=== PATIENT | female | born 1970 | race Caucasian/White ===

== ENCOUNTER 2019-02-23 08:12 | Observation (INO) ==
--- NOTE | 2019-02-23 09:13 | Emergency Department Note ---
Disposition Clinical Impression: Elevated troponin Disposition: Admitted As Inpatient Condition: Fair Referrals: Antonino Yoon MD [Primary Care Provider] - Forms: ED Satisfaction Letter Time of Disposition: 10:13 General Adult HPI - General Chief complaint: ED Weakness Stated complaint: Weakness, Abdominal pain Time Seen by Provider: 02/23/19 08:19 Source: patient Limitations: no limitations Nursing Notes Reviewed: Yes Vital Signs Reviewed: Yes - History of Present Illness HPI Narrative: 48 year old female with a history of Crohn's disease resents with abdominal bloating and weakness for [address] Morales last week. She was told that she can decrease the dose of Pentasa. She decreased Pentasa from 6 times a day to 5 times a day 5 days ago. She started symptoms ever since. Patient increase the dose back to 6 times a day since Thursday. Patient reported nausea and burping. No vomiting. No chills and fever. No constipation or pierce rrhea. Onset (ago): day(s) (5) Location: abdomen Pain Scale: 5 - Related Data Home Medications Medication Instructions Recorded Confirmed Mesalamine [Pentasa] 1,500 mg PO BID 02/23/19 02/23/19 Allergies Allergy/AdvReac Type Severity Reaction Status Date / Time dicyclomine [From Bentyl] AdvReac Diarrhea Verified 02/23/19 10:13 Constitutional: Denies: fever, chills Eyes: Denies: eye pain ENT ED: Denies: ear pain Cardiovascular: Denies: chest pain Respiratory: Denies: cough Gastrointestinal: Reports: abdominal pain, nausea. Denies: vomiting, diarrhea, constipation Genitourinary: Denies: urgency Musculoskeletal: Denies: back pain Integumentary: Denies: rash Neurological: Denies: headache Psychiatric: Denies: anxiety Endocrine: Denies: fatigue Hematological/Lymphatic: Denies: easy bleeding Allergic/Immunologic: Denies: facial swelling Past Medical History - Past Medical History Medical history: Reports: other Surgical history: Reports: hysterectomy Psychiatric history: Reports: no psych history - Social History Smoking Status: Never smoker Smokeless Tobacco Status: No Alcohol use: Reports: none Drug use: Reports: none Physical Exam - General Limitations: no limitations General appearance: alert, in no apparent distress - Head Head exam: atraumatic - Eye Eye exam: Present: normal appearance - ENT ENT exam: normal exam - Neck Neck exam: Present: normal inspection - Chest Chest inspection: Present: normal inspection - Respiratory Respiratory exam: Present: normal lung sounds bilaterally - Cardiovascular Cardiovascular exam: Present: regular rate - Abdominal Exam Abdominal exam: Present: soft, tenderness Abdominal tenderness: Present: epigastrium - Extremities Exam Extremities exam: Present: normal inspection, full ROM. Absent: tenderness - Back Exam Back exam: Present: normal inspection, full ROM. Absent: tenderness - Neurological Exam Neurological exam: Present: alert, oriented X3 - Psychiatric Psychiatric exam: Present: normal affect - Skin Skin exam: Present: warm, intact Course Vital Signs Temperature 97.5 F L 02/23/19 08:15 Pulse Rate 84 02/23/19 08:15 Respiratory Rate 18 02/23/19 08:15 Blood Pressure 142/93 02/23/19 08:15 O2 Sat by Pulse Oximetry 98 02/23/19 08:15 Temperature 97.5 F L 02/23/19 08:15 Pulse Rate 84 02/23/19 08:15 Respiratory Rate 18 02/23/19 08:15 Blood Pressure 142/93 02/23/19 08:15 O2 Sat by Pulse Oximetry 98 02/23/19 08:15 Oxygen Delivery Oxygen Delivery Room Air Medical Decision Making - [facility] Narrative Medical decision making narrative: 48 year old female with history of crohn's disease presents with abdomen bloating and generalized weakness for 5 days. Pt's symptoms started when she decreased Pensata from 6 times to 5 times a day. Pt returned to original dosage two days ago. But her symptoms wasn't resolved. Pt denied chest pain or shortness of breath. Pt has nausea. No vomiting. Pt's physical: no tachycardia, abdomen soft, mild epigastric pressure. EKG: no elevation of ST. Troponin elevated 0.07. Pt will be admit to hospital. Dr. Jacinto has seen the patient and agrees the above plan. - Lab Data Lab results reviewed: Yes I reviewed the patient's lab results. Result diagrams: 02/23/19 09:08 02/23/19 09:08 Lab Results 02/23/19 02/23/19 Range/Units 09:08 09:08 WBC 7.3 (4.3-11.1) K/mcL RBC 4.85 (3.82-4.97) M/mcL Hgb 14.7 (11.5-15.4) g/dL Hct 43.3 (35.3-44.9) % MCV 89.3 (83.0-100.0) fL MCH 30.3 (28.0-33.3) pg MCHC 33.9 (31.6-35.5) g/dL RDW 12.2 (11.5-14.5) % Plt Count 267 (140-400) K/mcL MPV 10.1 (9.4-12.4) fL Immature Gran % 0.3 (0-4) % Seg Neutrophils % 68.9 % Lymphocytes % 20.7 % Monocytes % 7.7 % Eosinophils % 1.9 % Basophils % 0.5 % Neutrophils # 5.0 (1.6-8.9) K/mcL Lymphocytes # 1.5 (0.6-4.6) K/mcL Monocytes # 0.6 (0.0-1.3) K/mcL Eosinophils # 0.1 (0.0-0.6) K/mcL Basophils # 0.0 (0.0-0.2) K/mcL Sodium 137 (136-145) mEq/L Potassium 4.9 (3.5-5.1) mEq/L Chloride 103 (98-107) mEq/L Carbon Dioxide 26 (23-29) mEq/L BUN 19 (6-20) mg/dL Creatinine 0.71 (0.60-1.20) mg/dL Est GFR ( Amer) > 60 (> 60) Est GFR (Non-Af Amer) > 60 (> 60) BUN/Creatinine Ratio 27 H (6-26) Glucose 79 (70-105) mg/dL Calculated Osmolality 285 (280-300) Calcium 10.0 (8.6-10.3) mg/dL Troponin I 0.07 H* (< 0.04) ng/mL Lipase 39 (11-82) Units/L Attestation Statement - Attestation Attestation: I examined this patient and my medical decision-making was reviewed with the advanced practice provider I agree with the documented findings, disposition and treatment plan as described except to the extent set forth below. Patient has benign abdominal examination in the emergency room, there is no severe abdominal tenderness on examination, no mass guarding or rebound, the patient does not have a cough, she did have a recent viral illness last week she states. She denies any severe shortness of breath or chest pain here in the emergency room. The patient denies any fever today or yesterday. The patient has had no urinary complaints. The patient's workup is unremarkable except for noted troponin. The patient did have an EKG that showed sinus rhythm, no evidence of ST elevation or depression, OH and QT intervals were within normal limits. I did interpret this myself. The patient this point in time is going to be admitted for elevated troponin, patient was given aspirin here in the emergency room. Patient will be admitted in stable condition to the floor. No other critical interventions performed, no critical care.
[2019-02-23 09:34] LABS: Basophils % 0.5 %; Eosinophils # 0.1 K/mcL (0.0-0.6); Eosinophils % 1.9 %; Hematocrit 43.3 % (35.3-44.9); Hemoglobin 14.7 g/dL (11.5-15.4); Immature Granulocytes % 0.3 % (0-4); Lymphocytes # 1.5 K/mcL (0.6-4.6); Lymphocytes % 20.7 %; Mean Corpuscular HGB Conc 33.9 g/dL (31.6-35.5); Mean Corpuscular Hemoglobin 30.3 pg (28.0-33.3); Mean Corpuscular Volume 89.3 fL (83.0-100.0); Mean Platelet Volume 10.1 fL (9.4-12.4); Monocytes # 0.6 K/mcL (0.0-1.3); Monocytes % 7.7 %; Platelet Count 267 K/mcL (140-400); Red Blood Count 4.85 M/mcL (3.82-4.97); Red Cell Distribution Width 12.2 % (11.5-14.5); Segmented Neutrophils % 68.9 %; White Blood Count 7.3 K/mcL (4.3-11.1)
[2019-02-23 09:39] LABS: BUN/Creatinine Ratio 27 (6-26); Blood Urea Nitrogen 19 mg/dL (6-20); Carbon Dioxide 26 mEq/L (23-29); Chloride 103 mEq/L (98-107); Glucose 79 mg/dL (70-105); Lipase 39 Units/L (11-82); Osmolality,Calculated 285 (280-300); Potassium 4.9 mEq/L (3.5-5.1); Sodium 137 mEq/L (136-145); eGFR For African Americans > 60 (> 60); eGFR For Non-African Americans > 60 (> 60)
[2019-02-23 09:42] LABS: Troponin I 0.07 ng/mL (< 0.04)
[2019-02-23] MEDS ORDERED: Aspirin 325 MG TABLET PO ONE (10:11)
[2019-02-23] MEDS ORDERED: Pantoprazole 40 MG VIAL IVP ONE (10:11)
[2019-02-23] MEDS ORDERED: Ondansetron 4 MG/2 ML VIAL IVP ONE (10:11)
[2019-02-23] MEDS ORDERED: Naloxone 0.4 MG/ML INJ IVP PRN (10:14)
[2019-02-23] MEDS ORDERED: Ondansetron ODT 4 MG TAB.RAPDIS SL PRN (10:14)
[2019-02-23] MEDS ORDERED: *HR* Promethazine 25 MG/ML VIAL IVP PRN (10:14)
[2019-02-23 10:18] LABS: Bilirubin,Urine Negative (Negative); Blood,Urine Negative (Negative); Clarity,Urine Clear (Clear); Color,Urine Yellow (Yellow); Glucose,Urine (UA) Normal (Normal); Ketones,Urine Negative (Negative); Leukocyte Esterase,Urine Negative (Negative); Nitrite,Urine Negative (Negative); PH,Urine 6.5 pH Units (5.0-8.0); Protein,Urine Negative (Neg-Trace); Specific Gravity,Urine 1.019 (1.010-1.025); Urobilinogen,Urine Normal (Normal)
[2019-02-23] MEDS ORDERED: 0.9 % Sodium Chloride 1,000 ML IVC ONE (10:36)
[2019-02-23] MEDS ORDERED: methylPREDNISolone 125 MG/2 ML VIAL IVP ONE (10:38)
--- NOTE | 2019-02-23 11:30 | Internal Med History&Physical ---
Date of Encounter: 02/23/19 Time of Encounter: 11:27 Internal Medicine - H&P: HPI Chief complaint: Abdominal bloating and extreme fatigue Admitted From: Home Plans for Post Hospital Care: Home History of present illness: Ms. Schneider is a 48 year old female with history of Crohn's disease controlled up until recently on mesalamine presents with abdominal bloating and extreme fatigue. Patient normally takes 6 pills of mesalamine and is considered stable on this for the last [address] Montez of gastroenterology. Had a recent appointment with Dr. Wilson and discuss going down on her dose because she is been so stable and patient was interested in taking less pills. Went up to 5 pills per day. February 18 patient began to experience an episode of diarrhea. Diarrhea resolved but on February 19 patient began to experience severe abdominal cramping and extreme fatigue. Says she does not have the energy to do anything. Went to her PCP February 21 and labs at that time normal. Went back up to her 6 pills per day at that time. Despite this, symptoms have not resolved. Patient denies diarrhea and constipation at this time. Denies blood in her stool or melena. Had some nausea but no episodes of vomiting. Has been able to eat minimally. Past Med Surg Social Fam HX - Past Medical History Medical history: other Additional medical history: anemia,bronchitis Psychiatric history: no psych history - Past Surgical History Surgical History: hysterectomy - Social History Smoking Status: Never smoker Smokeless Tobacco Status: No Alcohol use: none Drug use: none Internal Medicine - H&P: Meds Mesalamine [Pentasa] 1,500 mg PO BID 02/23/19 [History] Allergy/AdvReac Type Severity Reaction Status Date / Time dicyclomine [From Bentyl] AdvReac Diarrhea Verified 02/23/19 10:13 All Systems PM: A 10-system review of systems was performed and is negative for pertinent findings except as documented above in the HPI. Review of systems: General: Fevers / Chills / Weight loss / Night sweats / Fatigue Eyes: Blurry Vision / Change in Vision HENT: Ear Pain / Ear Drainage / Rhinorrhea / Throat Pain / Lymphadenopathy Cardiovascular: Chest Pain / Palpatations / Orthopnea / ROBERTS / Weight gain Lungs: Dyspnea / Wheezing / Cough / Sputum production / Pleurisy Abdomen: Abdomen cramping / Abdominal distention / Nausea / Vomiting / Diarrhea / Const : Dysuria / Urinary Frequency / Urinary Urgency / Hematuria Extremities: LE edema / Ext pain / Ext erythema Skin: Rashes / Abrasions / Contusions Psych: Hallucinations / Anxiety / Depression Neuro: Weakness / Numbness / Tingling / Facial Droop / Dysphagia - Constitutional Vitals: Temp Pulse Resp BP Pulse Ox 98.4 F 72 16 138/80 99 02/23/19 11:26 02/23/19 11:26 02/23/19 11:26 02/23/19 11:26 02/23/19 11:26 Exam: General: Ill-appearing and in no acute distress HEENT: No erythema of posterior pharynx. No exudates. Lymphatics: No mandibular or cervical lymphadenopathy Cardiovascular: RRR. No murmurs. No chest wall tenderness. Lungs: Clear to auscelltation bilaterally. Regular chest rise. Abdomen: Largely non-tender. No rebound or gaurding. Nl bowel sounds. Extremities: No edema. 2+ pulses radial and pedal pulses Skin: No rahses, abrasions, or contusions. Nl cap refill. Psych: Nl attention. A&Ox3 Neuro: corporate pilot II-XII intact. 5/5 strength. Sensation to light touch and pinprick intact. Internal Med - H&P Results - Labs CBC & Chem 7: 02/23/19 09:08 02/23/19 09:08 Labs: Short CBC 02/23/19 Range/Units 09:08 WBC 7.3 (4.3-11.1) K/mcL Hgb 14.7 (11.5-15.4) g/dL Hct 43.3 (35.3-44.9) % Plt Count 267 (140-400) K/mcL Neutrophils # 5.0 (1.6-8.9) K/mcL BMP 02/23/19 09:08 Sodium 137 Potassium 4.9 Chloride 103 Carbon Dioxide 26 BUN 19 Creatinine 0.71 Glucose 79 Calcium 10.0 Cardiac Enzymes 02/23/19 Range/Units 09:08 Troponin I 0.07 H* (< 0.04) ng/mL Urine 02/23/19 Range/Units 09:55 Urine Color Yellow (Yellow) Urine Clarity Clear (Clear) Urine pH 6.5 (5.0-8.0) pH Units Ur Specific [place] 1.019 (1.010-1.025) Urine Protein Negative (Neg-Trace) mg/dL Urine Glucose (UA) Normal (Normal) mg/dL - Impressions ITS Impressions Chest X-Ray 02/23/19 10:13 IMPRESSION: Stable chest without acute cardiopulmonary process. D/ / Dennis Kruse MD / Dennis Kruse MD Interpreting Provider: Dennis Kruse MD - Assessment and Plan (1) Crohn's colitis Current Visit: Yes Status: Acute Assessment and plan: Patient with history of Crohn's disease controlled up until recently on mesalamine presents with abdominal bloating and extreme fatigue in the setting of recently going down on her mesalamine dose, stable vitals, benign physical exam, and no leukocytosis. -Likely straightforward case of Crohn's flare setting of recently going down on her mesalamine dose -Alternative etiologies considered as ACS given troponin was elevated and will need to trend PLAN: - Status post IV methylprednisolone in the ED. Will schedule prednisone 40mg qd thereafter - Continue home mesalamine (6 pills/d) - Discused case with GI and they will see patient given she closely folllows with GI - Will hold off on CT abd/pelvis at this time unless GI feels strongly about getting it Qualifiers: Digestive disease complication type: without complication Qualified Code(s): K50.10 - Crohn's disease of large intestine without complications (2) Generalized weakness Current Visit: Yes Status: Acute Assessment and plan: Likely secondary to Crohn's flare described above (3) Elevated troponin Current Visit: Yes Status: Acute Assessment and plan: No personal history of heart disease with strong family history of heart disease. Otherwise seems to be at low risk. No exertional dyspnea. Suspect this is type II demand but will trend troponin. - Trend troponin - Summary of Assessment and Plan Summary of Assessment and Plan: LMWH
--- NOTE | 2019-02-23 11:49 | Gastroenterology Consult Note ---
Date of Encounter: 02/23/19 Time of Encounter: 11:39 - Assessment and plan (1) Crohn's colitis Current Visit: Yes Status: Acute Assessment and plan: History of Crohn's colitis follows Dr. Morales outpatient Presented to the ED on 02/23/19 complaining of diffuse at all pain with distention Her last colonoscopy was on 03/07/15 which showed diffusely normal Had an EGD on 03/07/15 which showed normal stomach mucosa but due to other workup and significant diaahea was diagonosed with Crohns Crohns has been controlled with mesalamine outpatient At presentation her hemoglobin was within normal limits at 14.7 and white blood cell count 7.3 Received 125 mg of Solu-Medrol in the ED Less likely GI etiology, no diarrhea, no nausea, no reproducible abdominal tenderness, no dysphagia or loss of appetite Given the severe fatigue since 02/19/19 and elevated troponin concerning for cardiac etiology Will order B12 for energy support Recommend cardiac workup Qualifiers: Digestive disease complication type: without complication Qualified Code(s): K50.10 - Crohn's disease of large intestine without complications - Time Spent With Patient Total time spent is greater than 50% in coordination of care (as documented) at patient's floor/unit and/or counseling patient: GI History of Present Illness - Data of Consult Requesting Physician: Lance Christianson - Consult Narrative History of present illness: Ms. Schneider is a 48 year old female with past medical history of bronchitis, Crohn's disease which was controlled on mesalamine outpatient is admitted to the ED complaining of abdominal bloating and extreme fatigue. She has been stable on mesalamine for the past 4 years and follows outpatient with Dr. peres. She was previously on 6 pills of mesalamine recently had outpatient appointment and was recommended to decrease to 5 pills per day and reported on February 18 started to experience an episode of diarrhea. On February 19 continued to have severe diarrhea with abdominal cramping and extreme fatigue. Diarrhea resolved and had regular bowel movement today. On February 21 her PCP ordered labs which included iron panel, B12 as well as thyroid function which were all within normal limits. She does report that 2 days prior to her symptoms starting she visited a water park and after returning from the park had symptoms of sore throat, cough as well as subjective fever. Continues to complain of cough and significant fatigue unable to move around much and reports she is staying in bed which is very unlike her. At this time she is denying any diarrhea constipation but complaining of severe abdominal pain. Reports no difficulty with oral intake. Denied hematochezia, melena, emesis. Past Med Surg Social Fam HX - Past Medical History Medical history: other Additional medical history: anemia,bronchitis Psychiatric history: no psych history - Past Surgical History Surgical History: hysterectomy - Social History Smoking Status: Never smoker Smokeless Tobacco Status: No Alcohol use: none Drug use: none - Gastrointestinal Gastrointestinal: Present: abdominal pain (periumbilical). Absent: diarrhea, melena, vomiting - Constitutional Constitutional: fatigue, fever(s) (subjective on 02/21/19) - EENT Nose, mouth and throat: Absent: dysphagia, hoarseness, sore throat - Cardiovascular Cardiovascular ROS: Absent: chest pain, irregular heart rhythm, palpitations - Respiratory Respiratory IM: Absent: cough, dyspnea - Neurological ROS Neurological GI: Absent: confusion, headache(s), weakness - Hematologic/Lymphatic Hematologic/Lymphatic pediatric: Absent: easy bleeding - Musculoskeletal Musculoskeletal ROS GI: Absent: back pain, joint swelling - Integumentary Integumentary GI: Absent: pruritis, rash - Constitutional Vitals: Temp Pulse Resp BP Pulse Ox 98.4 F 72 16 138/80 99 02/23/19 11:26 02/23/19 11:26 02/23/19 11:26 02/23/19 11:26 02/23/19 11:26 - Head Head exam: Present: atraumatic, normal inspection - Eye Eye exam: Present: EOMI, sclera anicteric. Absent: conjunctival injection - ENT ENT exam: Present: mucous membranes moist, normal oropharynx - Neck Neck exam general surgery: Present: full ROM, trachea midline - Respiratory Respiratory exam: Present: CTAB. Absent: rhonchi, wheezes - Cardiovascular Cardiovascular exam: Present: RRR, +S1, +S2 - GI/Abdominal GI/Abdominal exam: Present: normal bowel sounds, soft. Absent: firm - Neurological Exam Neurological exam: Present: alert, oriented X3 - Skin Skin exam: Present: dry, intact Results - Labs CBC & Chem 7: 02/23/19 09:08 02/23/19 09:08 Labs: Last Result 02/23/19 09:08 Calcium 10.0 Troponin I 0.07 H* Entire Visit 02/23/19 02/23/19 09:08 09:08 Hgb 14.7 Hct 43.3 Lipase 39 - Impressions Impressions Chest X-Ray 02/23/19 10:13 IMPRESSION: Stable chest without acute cardiopulmonary process. D/ / Dennis Kruse MD / Dennis Kruse MD Interpreting Provider: Dennis Kruse MD Consult Discharge Plan - Plan Referrals: Antonino Yoon MD [Primary Care Provider] -
[2019-02-23] MEDS ORDERED: Isovue-370 500 ML BOTTLE IVP ONE (12:10)
[2019-02-23] MEDS ORDERED: Isovue-370 500 ML BOTTLE PO ONE (15:13)
--- NOTE | 2019-02-23 15:18 | Electrocardiograph Report ---
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
[2019-02-23] MEDS: Cyanocobalamin (B-12) 1,000 MCG TABLET PO SCH (17:16)
[2019-02-23] MEDS ORDERED: Mesalamine 250 MG CAPSULE.ER PO SCH (18:00)
[2019-02-23] MEDS: MESALAMINE PO SCH (18:41)
[2019-02-24] MEDS ORDERED: Ketorolac 15 MG/ML VIAL IVP ONE (03:11)
[2019-02-24] MEDS ORDERED: 0.9 % Sodium Chloride 1,000 ML IVC SCH (04:45)
[2019-02-24] MEDS: MESALAMINE PO SCH ×2 (04:51→11:52)
[2019-02-24 04:59] LABS: Basophils % 0.2 %; Eosinophils % 0.1 %; Hemoglobin 13.5 g/dL (11.5-15.4); Immature Granulocytes % 0.3 % (0-4); Lymphocytes % 11.4 %; Mean Corpuscular HGB Conc 33.8 g/dL (31.6-35.5); Mean Corpuscular Hemoglobin 29.9 pg (28.0-33.3); Mean Corpuscular Volume 88.5 fL (83.0-100.0); Mean Platelet Volume 10.1 fL (9.4-12.4); Monocytes # 0.9 K/mcL (0.0-1.3); Monocytes % 5.8 %; Neutrophils # 13.3 K/mcL (1.6-8.9); Platelet Count 269 K/mcL (140-400); Red Blood Count 4.52 M/mcL (3.82-4.97); Red Cell Distribution Width 12.2 % (11.5-14.5); Segmented Neutrophils % 82.2 %
[2019-02-24 05:02] LABS: Lymphocytes # 1.9 K/mcL (0.6-4.6); White Blood Count 16.2 K/mcL (4.3-11.1)
[2019-02-24 05:20] LABS: BUN/Creatinine Ratio 24 (6-26); Blood Urea Nitrogen 15 mg/dL (6-20); Calcium 9.1 mg/dL (8.6-10.3); Carbon Dioxide 19 mEq/L (23-29); Chloride 108 mEq/L (98-107); Glucose 95 mg/dL (70-105); Osmolality,Calculated 289 (280-300); Potassium 3.9 mEq/L (3.5-5.1); Sodium 139 mEq/L (136-145); eGFR For African Americans > 60 (> 60); eGFR For Non-African Americans > 60 (> 60)
[2019-02-24 05:50] LABS: Adenovirus Not Detected (Not Detect); Coronavirus 229E Not Detected (Not Detect); Coronavirus HKU1 Not Detected (Not Detect); Coronavirus NL63 Not Detected (Not Detect); Coronavirus OC43 Not Detected (Not Detect); Human Metapneumovirus Not Detected (Not Detect); Human Rhinovirus/Enterovirus DETECTED (Not Detect); Influenza A Subtype 2009 H1 Not Detected (Not Detect); Influenza A Untypeable Not Detected (Not Detect); Influenza B Not Detected (Not Detect)
[2019-02-24 05:51] LABS: Bordetella Pertussis Not Detected (Not Detect); Chlamydophila pneumoniae Not Detected (Not Detect); Mycoplasma pneumoniae Not Detected (Not Detect); Parainfluenza Virus 1 Not Detected (Not Detect); Parainfluenza Virus 2 Not Detected (Not Detect); Parainfluenza Virus 3 Not Detected (Not Detect); Parainfluenza Virus 4 Not Detected (Not Detect); Respiratory Syncytial Virus Not Detected (Not Detect)
[2019-02-24] MEDS ORDERED: *HR* Enoxaparin 40 MG/0.4 ML SYRINGE SQ SCH (06:00)
[2019-02-24] MEDS ORDERED: Regadenoson 0.4 MG/5 ML SYRINGE IVP ONE (06:07)
[2019-02-24 11:28] VITALS: BP 131/73
[2019-02-24] MEDS: Cyanocobalamin (B-12) 1,000 MCG TABLET PO SCH (11:51)
--- NOTE | 2019-02-24 13:32 | Cardiology Consult Note ---
<Bandar Suarez R - Last Filed: 02/24/19 13:28> Date of Encounter: 02/24/19 Time of Encounter: 13:28 Assessment and Plan (1) Elevated troponin Current Visit: Yes Status: Acute Troponin 0.07, 0.07, 0.08, 0.07, 0.06--flat and adynamic in setting of entero/rhinovirus. Likely demand ischemia, nondiagnostic for ACS. Cardiac rehab not warranted. She denies chest pain or dyspnea, is very active at home. No personal CAD hx. No ischemic findings on ECG. TTE EF 60-65% with normal wall motion. Nuclear stress test negative for ischemia or infarct per preliminary results. Final report pending. Pt states abdominal pain has completely resolved and fatigue is improving. Will discuss and review with Dr. Sullivan. Anticipate sign off once seen and e valuated by her. Discussion w patient/family: The assessment and plan as outlined above was discussed with the patient and/or family members who expressed understanding and agreement. All questions were answered. Thank you for involving us in the care of your patient. Please call with any questions. I will discuss all the above with Dr. Sullivan and make changes as necessary. History of Present Illness Consult date: 02/24/19 Consult reason: elevated troponin Chief complaint: abdominal pain, fatigue History of present illness: Ms. Schneider is a 48 year old female with history of Crohn's disease controlled up until recently on mesalamine presents with abdominal bloating and extreme fatigue. Patient normally takes 6 pills of mesalamine and is considered stable on this for the last 4 years. Follows with GI. Presented to ED for symptoms. Troponin 0.07, 0.07, 0.08, 0.07, 0.06. Cardiology consulted for further recs. She denies chest pain or dyspnea, is very active at home. No personal CAD hx. Viral panel positive for entero/rhinovirus. TTE EF 60-65% with normal wall motion. Nuclear stress test negative for ischemia or infarct per preliminary results. Final report pending. Pt states abdominal pain has completely resolved and fatigue is improving. Past Med Surg Social Fam HX - Past Medical History Medical history: other Additional medical history: Crohns Psychiatric history: no psych history - Past Surgical History Surgical History: hysterectomy Additional surgical history: eptopic , exploritory surgery for endometerosis - Social History Smoking Status: Never smoker Smokeless Tobacco Status: No Alcohol use: none Drug use: none Medications and Allergies Mesalamine [Pentasa] 1,500 mg PO BID 02/23/19 [History] Allergy/AdvReac Type Severity Reaction Status Date / Time dicyclomine [From Bentyl] AdvReac Diarrhea Verified 02/23/19 10:13 All Systems Review: The remainder of the systems were reviewed and are negative - Constitutional Constitutional: fatigue - Gastrointestinal Gastrointestinal: abdominal pain Physical Examination Vital Signs, Last 4 Hours Temp Pulse Resp BP Pulse Ox 02/24/19 11:17 98.2 F 75 16 131/73 99 Vital Signs Temp Pulse Resp BP Pulse Ox 02/24/19 11:17 98.2 F 75 16 131/73 99 02/24/19 07:31 98.4 F 60 16 123/68 99 02/24/19 04:07 98.3 F 74 17 119/69 96 02/23/19 23:07 98.6 F 127 15 120/72 99 02/23/19 18:50 98.4 F 104 16 128/75 95 02/23/19 15:57 98.4 F 80 15 133/67 96 Intake and Output 02/23/19 02/24/19 02/24/19 23:59 07:59 15:59 Intake Total 120 / 1120 Output Total 600 / 800 350 / 350 Balance -480 / 320 -350 / -350 Intake: Oral 120 / 120 Output: Urine 600 / 800 350 / 350 Other: Meal Dinner Percent of Meal Consumed 25% Blood Glucose* 157 90 89 General: Conversant, No Apparent Distress HEENT: Atraumatic, Normocephaly, Mucus Membranes Moist Neck: No JVD, Normal carotid pulses Cardiac: Reg Rate and Rhythm, Normal S1 and S2, No Murmur Lungs: Normal Breath Sounds, No Wheeze, Rales, Rhonchi Neuro: Alert and responsive, No focal deficits noted Abdomen: Soft, Non-Tender Skin: No rashes noted on visualized skin Musculoskeletal: No Chest Wall Tenderness Extremities: No Clubbing, No Cyanosis, No Edema, Normal Pulses Results 02/24/19 04:15 02/24/19 04:15 Lab Results 02/23/19 02/23/19 02/24/19 15:45 21:00 04:15 WBC 16.2 H D Hgb 13.5 Hct 40.0 Plt Count 269 Sodium Potassium Chloride Carbon Dioxide BUN Creatinine Glucose Calcium Troponin I 0.07 H* 0.08 H* 02/24/19 02/24/19 02/24/19 04:15 04:15 11:56 WBC Hgb Hct Plt Count Sodium 139 Potassium 3.9 Chloride 108 H Carbon Dioxide 19 L BUN 15 Creatinine 0.63 Glucose 95 Calcium 9.1 Troponin I 0.07 H* 0.06 H* Short CBC 02/24/19 Range/Units 04:15 WBC 16.2 H D (4.3-11.1) K/mcL Hgb 13.5 (11.5-15.4) g/dL Hct 40.0 (35.3-44.9) % Plt Count 269 (140-400) K/mcL Neutrophils # 13.3 H (1.6-8.9) K/mcL BMP 02/24/19 Range/Units 04:15 Sodium 139 (136-145) mEq/L Potassium 3.9 (3.5-5.1) mEq/L Chloride 108 H (98-107) mEq/L Carbon Dioxide 19 L (23-29) mEq/L BUN 15 (6-20) mg/dL Creatinine 0.63 (0.60-1.20) mg/dL Glucose 95 (70-105) mg/dL Calcium 9.1 (8.6-10.3) mg/dL Cardiac Enzymes 02/24/19 02/24/19 02/23/19 Range/Units 11:56 04:15 21:00 Troponin I 0.06 H* 0.07 H* 0.08 H* (< 0.04) ng/mL 02/23/19 Range/Units 15:45 Troponin I 0.07 H* (< 0.04) ng/mL Impressions Echocardiogram 02/23/19 14:29 Impressions: LVEF 60-65%. Normal LV chamber size, wall thickness and function. Mild left ventricular diastolic dysfunction. Normal right ventricular structure and function. No evidence of pulmonary hypertension. No significant valvular dysfunction. Left Ventricular Wall Motion: Rest Echo Findings All wall segments showed normal motion. Findings: Study Quality * Technically adequate exam. ECG Findings * Normal sinus rhythm. Left Ventricle * LVEF 60-65%. * Normal LV chamber size, wall thickness and function. * Mild left ventricular diastolic dysfunction. Right Ventricle * Normal right ventricular structure and function. Left Atrium * Normal left atrial size. Right Atrium * Normal right atrial size. Interatrial Septum * No evidence of PFO by color Doppler. Aortic Valve * Trileaflet aortic valve with normal function. * No aortic regurgitation. * No aortic stenosis. Mitral Valve * Normal mitral valve structure and function. * No mitral stenosis. * No mitral regurgitation. Tricuspid Valve * Normal tricuspid valve structure and function. * Trace tricuspid regurgitation. * No evidence of pulmonary hypertension. Pulmonic Valve * Pulmonic valve not well visualized. Aorta * Normally sized aortic root. Pericardium * The pericardium appears normal. IVC * Normal IVC dimensions and inspiratory collapse. Pulmonary Artery * Normal visualized portions of the main pulmonary artery. Abdomen/Pelvis CT 02/23/19 15:00 IMPRESSION: 1. No evidence of acute gastrointestinal abnormality to suggest acute Crohn's disease. Diverticulosis but no acute diverticulitis. Redemonstration of a large hiatal hernia. 2. Fatty infiltration of the liver but no focal disease. No evidence of gallbladder or biliary disease. D/ / 02/23/2019 15:35:32 Kirsten Emerson MD / [facility] Interpreting Provider: Kirsten Emerson MD Active Medications Cyanocobalamin (Vitamin B12) 1,000 mcg PO DAILY [facility] Stop: 08/25/19 15:42 Last Admin: 02/24/19 11:51 Dose: 1,000 mcg Documented by: Enoxaparin Sodium (Lovenox) 40 mg SQ 0600 [facility]; Protocol Stop: 08/26/19 06:01 Last Admin: 02/24/19 04:48 Dose: 40 mg Documented by: Sodium Chloride (0.9 % Sodium Chloride) 1,000 mls @ 100 mls/hr IVC .Q10H [facility] Stop: 08/26/19 04:46 Last Admin: 02/24/19 04:49 Dose: 100 mls/hr Documented by: Naloxone HCl (Narcan) 0.4 mg IVP Q2MPRN PRN PRN Reason: SEE COMMENTS Stop: 08/25/19 10:15 Ondansetron HCl (Zofran Odt) 4 mg SL Q8HR PRN PRN Reason: Nausea And Vomiting Stop: 08/25/19 10:15 Pharmacy Profile Note (Patient Taking Own Medication) 0 each PO Q12HR [facility] Stop: 08/25/19 18:01 Last Admin: 02/24/19 11:52 Dose: 1 each Documented by: Promethazine HCl (Phenergan) 12.5 mg IVP Q6HR PRN PRN Reason: Nausea And Vomiting Stop: 08/25/19 10:15 Last Admin: 02/24/19 04:48 Dose: 12.5 mg Documented by: - Imaging and Cardiology Stress Test: report reviewed Echo: report reviewed - EKG Interpretation EKG results cardiology: personally reviewed (SR) Consult Discharge Plan - Plan Referrals: Antonino Yoon MD [Primary Care Provider] - <Lor Sullivan - Last Filed: 02/24/19 14:02> Date of Encounter: 02/24/19 - Attending Attestation I examined this patient and my medical decision-making was reviewed with the DIRECTOR OF PHYSIOTHERAPY SERVICES. I agree with the documented findings, disposition and treatment plan as described. Ms. Schneider presents with mild, flat, adynamic troponin elevation in setting of acute viral infection. Etiology of troponin elevation unclear. Possibly demand ischemia vs. myocard itis. She is feeling better overall and wants to go home. LV systolic function is normal and stress testing is negative for obstructive CAD. Advised the patient to follow up with us as an outpatient if her symptoms worsen. Signing off at this time. Please call with questions. Assessment and Plan Discussion w patient/family: The assessment and plan as outlined above was discussed with the patient and/or family members who expressed understanding and agreement. All questions were answered. Thank you for involving us in the care of your patient. Please call with any questions. History of Present Illness History of present illness: Ms. Schneider is a 48 year old female All Systems Review: The remainder of the systems were reviewed and are negative Physical Examination Vital Signs, Last 4 Hours Temp Pulse Resp BP Pulse Ox 02/24/19 11:17 98.2 F 75 16 131/73 99 Results 02/24/19 04:15 02/24/19 04:15 Lab Results 02/23/19 02/23/19 02/24/19 15:45 21:00 04:15 WBC 16.2 H D Hgb 13.5 Hct 40.0 Plt Count 269 Sodium Potassium Chloride Carbon Dioxide BUN Creatinine Glucose Calcium Troponin I 0.07 H* 0.08 H* 02/24/19 02/24/19 02/24/19 04:15 04:15 11:56 WBC Hgb Hct Plt Count Sodium 139 Potassium 3.9 Chloride 108 H Carbon Dioxide 19 L BUN 15 Creatinine 0.63 Glucose 95 Calcium 9.1 Troponin I 0.07 H* 0.06 H*
--- NOTE | 2019-02-24 14:21 | Discharge Summary ---
- NOTES TO OUTPATIENT PROVIDER Notes to Outpatient Provider: Patient is a 48-year-old female with past medical history Crohn's disease presented to the emergency department yesterday with complaint of abdominal bloating, pain, and weakness. Patient received steroid for possible Crohn's exacerbation. GI consult was placed. CT abdomen and pelvis was done which was negative for any colitis, Crohn's exacerbation features, and for diverticulitis. On initial evaluation patient's troponin was elevated. Patient denied chest pain. Patient's troponin trend was adynamic. Echo and stress test was within normal limit. She was discharged home in stable condition. Patient to follow up with primary care provider within a week. Estimated PT Needs at Discharge: None Date of Encounter: 02/24/19 Time of Encounter: 14:19 - Discharge Diagnosis (1) Elevated troponin Priority: Primary Status: Acute (2) Generalized weakness Priority: Secondary Status: Acute (3) Crohn's colitis Priority: Secondary Status: Acute Qualifiers: Digestive disease complication type: without complication Qualified Code(s): K50.10 - Crohn's disease of large intestine without complications Hospital course: Ms. Schneider is a 48 year old female with past medical history Crohn's disease presented to the emergency department yesterday with complaint of abdominal blo ating, pain, and weakness. Patient received steroid for possible Crohn's exacerbation. GI consult was placed. CT abdomen and pelvis was done which was negative for any colitis, Crohn's exacerbation features, and for diverticulitis. On initial evaluation patient's troponin was elevated. Patient denied chest pain. Patient's troponin trend was adynamic. Echo and stress test was within normal limit. She was discharged home in stable condition. Patient to follow up with primary care provider within a week. Pt was advised to continue all home medication. Patient does not need any prescription on discharge. Discharge discussed with: patient, family, social work, case management, fashion consultant sales - Time Spent with Patient Total time spent providing and/or coordinating discharge services: 35 Time spent: Greater than 30 minutes - Discharge Medications Prescriptions: Continued Mesalamine [Pentasa] 1,500 mg PO BID Home Medications: Mesalamine [Pentasa] 1,500 mg PO BID 02/23/19 [History] Allergies/Adverse Reactions: Allergy/AdvReac Type Severity Reaction Status Date / Time dicyclomine [From Bentyl] AdvReac Diarrhea Verified 02/23/19 10:13 Date of admission: 02/23/19 10:35 Primary care physician: Antonino Yoon MD Consults: 02/23/19 10:41 Consult to Gastroenterology [CONS] Routine Consulting Provider: Gastroenterology aRmona Reason for Consult: crohn's flare Call Completed: Yes 02/23/19 14:30 Consult to Cardiology [CONS] Routine Comment: Consulting Provider: Cardiology Ramona Reason for Consult: NSTEMI and exertional fatigue Call Completed: No Discharging clinician: Sushant Meng - Constitutional Vitals: Temp Pulse Resp BP Pulse Ox 98.2 F 75 16 131/73 99 02/24/19 11:17 02/24/19 11:17 02/24/19 11:17 02/24/19 11:17 02/24/19 11:17 General appearance: Present: cooperative, A&O X 3 Exam: General: Ill-appearing and in no acute distress HEENT: No erythema of posterior pharynx. No exudates. Lymphatics: No mandibular or cervical lymphadenopathy Cardiovascular: RRR. No murmurs. No chest wall tenderness. Lungs: Clear to auscelltation bilaterally. Regular chest rise. Extremities: No edema. 2+ pulses radial and pedal pulses Skin: No rahses, abrasions, or contusions. Nl cap refill. Psych: Nl attention. 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 5/5 strength. Sensation to light touch and pinprick intact. - Patient Status Disposition: Home, Self-Care Condition: Good Overall status at discharge: patient is progressing back to baseline - Discharge Instructions Follow Up With: Antonino Yoon MD [Primary Care Provider] - - Diet and Activity Activity: increase activity as tolerated Diet: low salt diet
--- NOTE | 2019-02-24 17:33 | Electrocardiograph Report ---
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
== END 2019-02-24 15:53 | disposition home or self-care (01) ==
LOC: EMEROOARM 08:12 → 3ANU 08:12 → SUATTDRO 10:35 → 3ANU 11:08
PROVIDERS: ADMIT Internal Medicine; ATTEND Family Medicine